=== PATIENT | female | born 1985 | race Caucasian/White ===

== ENCOUNTER 2017-05-13 15:55 | Observation (INO) | payer MEDICAID, OTHER ==
[2017-05-13] MEDS ORDERED: BETAMETHASONE IM SYRINGE IM ONE (17:03)
[2017-05-13] MEDS ORDERED: AMPICILLIN SODIUM 2 GM in NS 100 ML IV SCH (18:00)
[2017-05-13] MEDS: AMPICILLIN SODIUM 2 GM in NS 100 ML IV SCH (18:07)
[2017-05-13 18:25] LABS: % IMMATURE GRANULYOCYTES 1.8 % (0.0-1.1); ABSOLUTE IMMATURE GRANULOCYTES 0.22 10^3/uL (0.00-0.10); ADD DIFF? NO; ADD MORPH? NO; ADD SCAN? NO; ATYPICAL LYMPHOCYTE FLAG 0 (0-99); FRAGMENT RBC FLAG 0 (0-99); HEMATOCRIT 35.6 % (38.0-47.0); HEMOGLOBIN 12.1 g/dL (12.6-16.3); LEFT SHIFT FLG 10 (0-99); LIPEMIA HEMOLYSIS FLAG 90 (0-99); MEAN CELL HEMOGLOBIN 30.6 pg (27.9-34.1); MEAN CELL VOLUME 89.9 fL (81.5-99.8); MEAN PLATELET VOLUME 11.6 fL (8.7-11.7); PLATELET CLUMPS FLAG 10 (0-99); PLATELET COUNT 228 10^3/uL (150-400); RED BLOOD CELL COUNT 3.96 10^6/uL (4.18-5.33); RED CELL DISTRIBUTION WIDTH 13.5 % (11.5-15.2)
--- NOTE | 2017-05-13 21:55 | GHP ---
[f rep st] HISTORY AND PHYSICAL DATE OF ADMISSION: 05/13/2017 ADMITTING DIAGNOSES: 1. Intrauterine at 34 and 1/7 days. 2. Heavy vaginal bleeding. 3. Previous section. 4. Oligohydramnios HISTORY OF PRESENT ILLNESS: Patient is a 31-year-old 3, para 1-0-1-1 at 34 weeks and 1 day by last menstrual period, 08/25/2016, and confirmed by first-trimester ultrasound at 5 weeks with an estimated due date 06/21/2017. The patient presents to Labor and Delivery via ambulance this afternoon with complaints of a gush of bright red blood noted at about 3:30 this afternoon. Patient was sitting on a paint can, bent over, and then went to stand up, and noted a gush of blood. She denies any pain or cramping. She states there is good movement. The patient denies any sexual intercourse for the past 2 weeks, and denies any direct abdominal trauma or trauma. She has not had any previous bleeding in this . The patient has good care at [facility], and presented in her 1st trimester. is complicated by a previous secondary to intolerance of labor. The patient desires repeat at this time and declines a trial of labor. The patient did have a 20-week ultrasound that noted a posterior placenta, but no mention of a placenta previa and patient did not have a follow up ultrasound. Otherwise, is uncomplicated. PAST OBSTETRICAL HISTORY: In 2008, she had an ectopic , treated with methotrexate. In 2010, she had a , a viable female , full term, 9 pounds 10 ounces, secondary to intolerance to labor. PAST GYNECOLOGIC HISTORY: Age of menarche 14. Cycles every 28 days, 4-5 days. The patient's last menstrual period was 09/14/2016. History of dysmenorrhea; was previously on control pills. She denies any exposure to sexually- transmitted disease. Does have a history of abnormal Pap in 2010; no treatment , and had a normal Pap smear in 2015. PAST MEDICAL HISTORY: Remarkable for attention deficit hyperactivity disorder; no longer taking Adderall. SURGICAL HISTORY: , 2010. FAMILY HISTORY: Noncontributory. SOCIAL HISTORY: She is . Lives with her and their daughter. She quit tobacco in October 2016. Drinks 1-2 cups of caffeine. No alcohol use during the . HOME MEDICATIONS: Include vitamins. ALLERGIES: No known drug allergies. REVIEW OF SYSTEMS: 10-point review of systems is negative. Pertinent positives noted in HPI. LABS: O positive, Antibody negative. Rubella immune. Hepatitis B surface antigen negative. HIV negative. RPR nonreactive. One-hour Glucola was 175. Three-hour Glucola was normal. H and H 12 and 36. GBS culture is pending. Labs on admission, H and H 12.1 and 35. She is O positive, antibody negative. Pelvic ultrasound revealed placenta on the left side of the uterus without evidence for abruption or previa. Cervical length is stable at 4 cm. LUDMILA at 7.2 cm. Estimated weight 87th percentile, 2828 g (6 pounds 4 ounces). PHYSICAL EXAMINATION ON ADMISSION: VITAL SIGNS: Stable. GENERAL: Patient is afebrile. Well-nourished, well-developed female. Alert and oriented x3. No apparent distress. CARDIOVASCULAR: Regular rate and rhythm. LUNGS: Clear to auscultation bilaterally. ABDOMEN: Gravid, soft, nontender, nondistended. PELVIC: There was active bleeding noted om SSE with small clots in the vault. These were all cleared, and then noted to have some darker blood. Cervical Os did appear closed. GBS culture was taken. EXTREMITIES: Normal to inspection without calf tenderness or edema. heart tones are Category 1 tracing with baseline 130 beats per minute. Positive accelerations. No decelerations. Moderate variability. On TOCO, there is no uterine irritability and no contractions. ASSESSMENT: Patient is a 31-year-old 3, para 1-0-1-1, at 34 and 1/7 weeks who presents with heavy vaginal bleeding, and history of a previous C- section. PLAN: 1. Admit to labor and delivery for observation. 2. Ultrasound was done that did reveal no evidence for abruption or previa. Questionable abruption at this time. 3. Prolonged monitoring at this time. 4. A GBS culture was taken and is pending. 5. Steroids, BTMZ, was given for lung maturity in case of delivery via C- section. Second dose due at 1730 on 05/14/2017. 6. Unsure if borderline oligo is secondary due to ruptured membranes. Will treat with antibiotics. For now, will give Ampicillin 2 gm q.6 hours, and will reassess. Amnisure is not accurate secondary to blood. 8. Pad count. /[id number]/MODL MTDD
[2017-05-14] MEDS: AMPICILLIN SODIUM 2 GM in NS 100 ML IV SCH ×3 (00:33→12:45)
--- NOTE | 2017-05-14 15:05 | OBPROG ---
OBG Labor Progress Note Assessment/Plan: Assessment: HD 2 s/p vag bleeding at 34w2d, unknown etiology - suspect partial abruption scant bld today PCS for RCS no previa or labor Plan: repeat BMZ at 17:30. D/C amp as no sign of ROM. Disc with pt/husb option of D/ C tonight or stay for observation. 05/14/17 14:54 Subjective: Pt doing fine. Scant bld today on pads. No other discharge or moisture. No ctxns or abd pain. GFM. No nausea. maribell reg food and hydrating well. Disc concern for partial abruption. Objective: 05/13/17 17:00 Patient ABO/Rh O POSITIVE 05/13/17 17:00 Group B Strep DNA NEGATIVE (NEGATIVE) 05/13/17 18:15 [place] Current Contraction Pattern: Other (Specify) (none) FHR (bpm): 140 FHR Pattern Variability: Moderate FHR Category: 1 Membranes: Intact Oxytocin Orders Assessment - Pre-Induction/Augmentation Assessment Gestational Age: 34 week(s) and 1 day(s) ICD10 Worksheet Patient Problems: Problems Problem Status Onset H/O section Acute Vaginal bleeding in Acute - ICD10 Problem Qualifiers (1) Vaginal bleeding in (2) H/O section
[2017-05-14] MEDS ORDERED: BETAMETHASONE IM SYRINGE IM ONE (17:30)
--- NOTE | 2017-05-14 19:12 | GDS ---
[f rep st] DISCHARGE SUMMARY DISCHARGE CONDITION: Fair. PROGNOSIS: Good. ADMISSION DIAGNOSIS: Intrauterine at 34 weeks and 1 day with vaginal bleeding in pregnanc y. DISCHARGE DIAGNOSIS: Intrauterine at 34 weeks and 1 day with vaginal bleeding in pregnanc y with suspected partial abruption with scant bleeding. HOSPITAL COURSE: The patient is a 31-year-old G3, P1, A1 at 34 weeks and 2 days on discharge, who p resented by ambulance on 05/13, coming from her work with vaginal bleeding. The patient reported a gush of blood while she was at work without any pain or cramping. The patient was not having any ab dominal trauma and no contractions or cramping. The patient was noted to have vaginal blood in the vault with no obvious lacerations or source of bleeding. The patient was observed on [facility] very until late in the day on 05/14. Patient had decreasing blood through the afternoon of 05/13 an d scant brown blood noted on 05/14. Monitoring revealed category 1 tracing with great variability a nd accelerations and no signs of any decelerations. There was no evidence of any contraction activi ty. Initially, with the uncertain etiology, the patient was begun on IV antibiotics for potential r upture of membranes. The fluid amount was so scant throughout the day on 05/14, that there was no r eal evidence of rupture of membranes. The patient did receive betamethasone with the potential that she might have to be delivered and the course of 2 injections were given 24 hours apart. The patie nt does have a history of section and will be delivered via repeat section by her caregiver in [place]. The patient has had regular care with a provider in [place] and wi ll follow up with that office. The patient had an ultrasound performed on 05/13 that did not reveal any signs of placental problem. The placenta was felt to be on the lateral left side with no evide nce of abruption or previa. The cervix appeared 4 cm. The estimated weight was in the 87th p ercentile. Fluid level was estimated at 7.2 cm. After the 2nd injection of betamethasone, the patient opted for discharge to remain at bedrest with bathroom privileges at home, and she will follow up with her usual care provider in [place] on to make a plan for continued assessment. The patient is advised to continue good hydration and w ill follow up on borderline fluid amount. /[id number]/MODL
== END 2017-05-14 18:00 | disposition home or self-care (01) ==
LOC: FLD 15:55
PROVIDERS: ADMIT Obstetrics & Gynecology; ATTEND Obstetrics & Gynecology
DX: O26.853 Spotting complicating pregnancy, third trimester (principal); O41.03X0 Oligohydramnios, third trimester, not applicable or unspecified; Z3A.34 34 weeks gestation of pregnancy; Z98.891 History of uterine scar from previous surgery
CPT/HCPCS: 59025; 76815; 96372; G0378; J0290; J0702

== ENCOUNTER → 2017-05-17 | Outpatient (CLI) | payer MEDICAID | LOC: FIMAGING 09:36 | PROVIDERS: ATTEND Student in an Organized Health Care Education/Training Program | DX: O44.12 Complete placenta previa with hemorrhage, second trimester (principal); Z3A.36 36 weeks gestation of pregnancy ==